=== PATIENT | male | born 2000 | race Caucasian/White ===

== ENCOUNTER 2022-04-23 09:57 | Emergency (ER) | payer OTHER, SELFPAY ==
--- NOTE | ~2022-04-23 | CT_ITS ---
EXAMINATION: CT BRAIN W/O DATE: 04/23/2022 11:00 INDICATION: Headache. TECHNIQUE: Computed tomography (CT) of the head was performed without intravenous contrast. The dose- length product was 605.33 mGy-cm. Automated exposure control and iterative reconstruction technique w ere employed. COMPARISON: No prior studies for comparison. FINDINGS: Normal brain parenchymal volume for age. Normal richardson-white differentiation. No acute intrac ranial hemorrhage, infarction, mass or mass effect. The intracranial vessels are hyperdense which can be seen with dehydration. No ventriculomegaly or midline shift. Midline sagittal images demonstrate a normal corpus callosum, c raniovertebral junction and sella turcica. Basilar cisterns are patent. Paranasal sinuses and mastoids are pneumatized. No depressed skull fractures. IMPRESSION: 1. No acute intracranial abnormality. Reviewed, dictated and finalized at location A.
[2022-04-23 10:20] VITALS: BP 162/82; PULSE 92; RESP 16; TEMP 36.2; O2SAT 100
[2022-04-23] MEDS: KETOROLAC 30 MG/ML VIAL (*BKC) IV PUSH (11:09)
[2022-04-23 12:20] VITALS: BP 127/71; PULSE 69; RESP 14; O2SAT 98
--- NOTE | 2022-04-23 13:14 | ED.HA ---
HPI - Headache General Chief Complaint: Headache Stated Complaint: headache Time Seen by Provider: 04/23/22 10:21 History of Present Illness HPI Narrative: Patient is a 21-year-old male who presents ER with headache for 3 weeks. Frontal. Nonradiating. Aching. Worsened when he is at work using a vibrating saw. No trauma. No change in vision or hearing. No ringing in the ears. No numbness or tingling to the arms or legs. Symptoms are worse in the morning. Improves when he takes Tylenol or ibuprofen. Related Data Home Medications Medication Instructions Recorded Confirmed No Home Medications 04/23/22 04/23/22 Allergies Allergy/AdvReac Type Severity Reaction Status Date / Time No Known Allergies Allergy Verified 04/23/22 10:25 Review of Systems Review of Systems: All systems reviewed & are unremarkable except as noted in HPI and below Constitutional: Constitutional: Denies chills, Denies fatigue and Denies fever(s) Eyes: Eyes: Denies change in vision and Denies photophobia ENT: Denies nasal congestion and Denies sore throat Cardiovascular: Cardiovascular: Denies chest pain, Denies rapid heart rate and Denies radiating jaw, neck or arm pain Respiratory: Respiratory: Denies cough, Denies dyspnea and Denies wheezing Gastrointestinal: Gastrointestinal: Denies abdominal pain and Denies nausea Neurologic: Denies dizziness, Denies syncope, Reports headache(s), Denies focal weakness and Denies numbness PMFSH Past Medical History Medical History (Updated 04/23/22 @ 13:20 by Francisco Lawrence MD) Healthy adult male Surgical History Surgical History (Updated 04/23/22 @ 13:20 by Francisco Lawrence MD) No history of previous surgery Social History Social History (Updated 04/23/22 @ 13:20 by Francisco Lawrence MD) Smoking status: Never smoker Exam Narrative: GENERAL: Well-appearing, well-nourished, and in no acute distress. HEAD: Normocephalic, atraumatic. EYES: PERRL and EOMI. ENT: Mucous membranes moist. No sinus tenderness. CHEST: Clear to auscultation. No respiratory distress. HEART: Regular rate and rhythm. Normal peripheral pulses. EXTREMITIES: Normal range of motion. No edema. SKIN: Warm, dry, no rash. NEURO: Alert and oriented x3. PSYCH: Normal mood and affect. Course Course Emergency Course: Headache improved with Toradol. Unremarkable CT. Recommend follow-up with neurology given concern for persistent headache. Vital Signs Vital signs: Vital Signs Temperature 97.2 F L 04/23/22 10:20 Pulse Rate 92 04/23/22 10:20 Respiratory Rate 16 04/23/22 10:20 Blood Pressure 162/82 H 04/23/22 10:20 Pulse Oximetry 100 04/23/22 10:20 Oxygen Delivery Room Air 04/23/22 10:20 Temperature 97.2 F L 04/23/22 10:20 Pulse Rate 69 04/23/22 12:20 Respiratory Rate 14 04/23/22 12:20 Blood Pressure 127/71 04/23/22 12:20 Pulse Oximetry 98 04/23/22 12:20 Oxygen Delivery Room Air 04/23/22 10:20 MDM - Headache Imaging Data Radiologist's impression: ITS Impressions Head CT 04/23/22 11:02 IMPRESSION: 1. No acute intracranial abnormality. Discharge Plan Discharge Clinical Impression: Headache Patient Disposition: Home, Self-Care Condition: Stable Additional Instructions: Return the ER if you lose consciousness, you have fever over 100.4 ?F, you cannot keep down food or water, you have additional concerns. Follow-up with neurology for further evaluation her headache which seems to be chronic at this point. Prescriptions: No Action No Home Medications Follow-up/Referrals: Hernan Bernardo MD [Physician] - 1 Week PHYSICIAN,EQUIPMENT SUPERINTENDENT [Primary Care Provider] - Stand Alone Forms: Work/School Release IP
[2022-04-23 13:22] VITALS: BP 134/73; PULSE 70; RESP 16; O2SAT 99
== END 2022-04-23 13:26 | disposition home or self-care (01) ==
PROVIDERS: Emergency Provider Emergency Medicine
DX: R51.9 Headache, unspecified (principal)
CPT/HCPCS: 70450; 96374; 99284; J1885

== ENCOUNTER 2022-07-03 09:48 | Emergency (ER) | payer OTHER, SELFPAY ==
--- NOTE | ~2022-07-03 | XR_ITS ---
Left Knee Technique: AP, lateral, and oblique views were obtained. Clinical History: Pain Findings: No fracture or dislocation is seen. Osseous alignment is anatomic. Joint spaces are preserv ed without degenerative or erosive change. Soft tissues are unremarkable. No joint effusion is seen. Impression: Unremarkable left knee radiographs. Reviewed, dictated and finalized at location [] ETIC LOCATER Impression: Unremarkable left knee radiographs.
--- NOTE | 2022-07-03 10:25 | ED.LOWEXIN ---
HPI - Extremity Injury (Lower) General Chief Complaint: Extremity Injury, Lower Stated Complaint: left knee injury Time Seen by Provider: 07/03/22 09:53 History of Present Illness HPI Narrative: 21-year-old male no medical problems presents to the emergency room for evaluation of left knee pain. Patient states 5 days ago he was playing basketball, when he landed on his left knee reportedly hearing a pop. States is experiencing pain with ambulation. Pain is located to the lateral and inferior side knee. Denies any joint laxity or buckling when he walks. States is taking ibuprofen and alleviates his discomfort for a brief period of time. Related Data Allergies Allergy/AdvReac Type Severity Reaction Status Date / Time No Known Allergies Allergy Verified 04/23/22 10:25 Review of Systems Review of Systems: CONSTITUTIONAL: Denies fever, chills, or sweats. EYES: Denies visual changes, redness, or discharge. ENT: Denies rhinorrhea, congestion, sore throat, or otalgia. CARDIOVASCULAR: Denies chest pain, palpitations, or edema. RESPIRATORY: Denies cough or dyspnea. GASTROINTESTINAL: Denies abdominal pain, nausea, vomiting, or diarrhea. GENITOURINARY: Denies dysuria or hematuria. SKIN: Denies rash or itching. MUSCULOSKELETAL: Reports left knee pain NEUROLOGIC: Denies headache, numbness, dizziness, or weakness. PSYCHIATRIC: Denies anxiety or depression. PMFSH Past Medical History Medical History Healthy adult male Surgical History Surgical History No history of previous surgery Social History Social History Smoking status: Never smoker Exam Narrative: GENERAL: Well-appearing, well-nourished, no physical limitations, and in no acute distress. HEAD: Normocephalic, atraumatic. EYES: Conjunctivae normal, PERRLA and EOMI. CHEST: Clear to auscultation. No respiratory distress. No wheezes rales or rhonchi. HEART: Regular rate and rhythm. No murmur heard. Normal peripheral pulses. EXTREMITIES: Left knee: +TTP with mild STS to posterior and lateral surfaces of the patella; no patellar tracking, no joint laxity. Negative anterior posterior drawer signs. Neurovascular is intact distally SKIN: Warm, dry, no rash. No noted wounds NEURO: No focal deficits. Alert and oriented x3. MAEW. CN's II-XI intact bilaterally, normal gait PSYCH: Cooperative. Normal mood and affect. MDM - Extremity Injury (Lower) Imaging Data Radiologist's impression: Impressions Knee X-Ray 07/03/22 10:03 Impression: Unremarkable left knee radiographs. Discharge Plan Discharge Clinical Impression: Left knee sprain, Acute internal derangement of knee Patient Disposition: Home, Self-Care Condition: Stable Instructions: Antibiotic Form Additional Instructions: Recommend obtaining a knee splint/sleeve from local pharmacy. Wear that for comfort. Take anti-inflammatories as needed for pain. Limit your physical activity. If you are not experiencing any relief of symptoms in the next 10 to 14 days, recommend following up with orthopedics or your primary care provider. Prescriptions: New meloxicam 15 mg tablet 15 mg PO DAILY Qty: 14 0RF Follow-up/Referrals: PHYSICIAN,CLIENT SUCCESS MANAGER [Non-Staff] - Olu Grier MD [Physician] - Stand Alone Forms: Work/School Release IP Time of Disposition: 10:34
[2022-07-03 10:35] VITALS: BP 126/70; PULSE 100; RESP 12; TEMP 37.1; O2SAT 98
== END 2022-07-03 10:51 | disposition home or self-care (01) ==
PROVIDERS: Emergency Provider Nurse Practitioner Family
DX: S83.92XA Sprain of unspecified site of left knee, initial encounter (principal); M23.92 Unspecified internal derangement of left knee; X50.0XXA Overexertion from strenuous movement or load, initial encounter
CPT/HCPCS: 73564; 99283

== ENCOUNTER 2023-05-17 19:16 | Observation (INO) | payer OTHER, SELFPAY ==
[2023-05-17] VITALS (9 sets, daily range): BP systolic 118–135; BP diastolic 65–79; PULSE 85–109; RESP 18–20; TEMP 37.6; O2SAT 97–100
--- NOTE | ~2023-05-17 | CT_ITS ---
EXAMINATION: CT abdomen pelvis w con DATE: 05/17/2023 21:59 INDICATION: RLQ tenderness TECHNIQUE: Computed tomography (CT) of the abdomen and pelvis was performed with 100 mL Omnipaque-350 intravenous contrast. Automated exposure control and iterative reconstruction technique were employe d. The dose-length product was 627.36 mGy-cm. COMPARISON: None. FINDINGS: Lower thorax: Unremarkable Liver: Normal. Biliary/Gallbladder: Gallbladder is normal. No bile duct dilation. Pancreas: No mass or duct dilation. Spleen: Normal. Adrenals:No mass. Kidneys: No suspicious mass, obstructing stone, or hydronephrosis. GI tract: No small or large bowel dilation. Dilated hyperemic appendix with surrounding inflammatory change, no abscess or wall breakdown Mesentery/Peritoneum: No ascites, mass, or free air. Retroperitoneum: No mass. Pelvis: Pelvic organs are within normal limits. Soft Tissues: Soft tissues and body wall unremarkable. Bones: No acute osseous finding. IMPRESSION: Acute uncomplicated appendicitis. Reviewed, dictated and finalized at location K.
[2023-05-17 19:44] LABS: Basophils Absolute Auto 0.1 K/mm3 (0.0-0.1); Basophils Percent Auto 0.3 % (0.2-1.2); Eosinophils Absolute Auto 0.1 K/mm3 (0-0.3); Eosinophils Percent Auto 0.3 % (0-4.4); Immature Granulocyte Absolute 0.05 K/mm3 (0.00-0.031); Immature Granulocyte Percent A 0.3 % (0-0.5); Mean Corpuscular Hemoglobin 29.1 pg (26-34); Mean Corpuscular Volume 85.6 fl (80-100); Mean Platelet Volume 10.4 fl (7.4-10.4); Monocytes Absolute Auto 1.3 K/mm3 (0.1-0.6); Monocytes Percent Auto 8.6 % (2.6-8.5); Neutrophils Absolute Auto 12.4 K/mm3 (1.3-6.7); Neutrophils Percent Auto 82.5 % (45.5-73.1); Platelet Count Result 199 k/mm3 (150-375); Red Blood Count 5.49 M/mm3 (4.6-6.20); White Blood Count 15.1 K/mm3 (4.5-10.0)
[2023-05-17 19:55] LABS: Appearance Urine Clear (Clear); Bilirubin Urine Negative (Negative); Blood Urine Negative (Negative); Color Urine Yellow (Yellow); Glucose Urine UA Negative (Negative); Ketones Urine Negative (Negative); Leukocyte Esterase Ur Negative LEU/UL (Negative); Nitrate Urine Negative (Negative); Protein Urine Negative (Negative); Specific Grav Ur 1.007 (1.001-1.035); Urobilinogen Urine 0.2 mg/dL (<2.0); pH Urine 7.5 (5.0-9.0)
[2023-05-17 19:56] LABS: Alanine Aminotransferase 64 U/L (6-50); Albumin Level 4.9 g/dL (3.5-5.1); Alkaline Phosphatase 72 U/L (38-126); Anion Gap 8 mmol/L (8-16); Aspartate Amino Transferase 35 U/L (17-59); Bilirubin,Total 0.9 mg/dL (0.2-1.3); Blood Urea Nitrogen 15 mg/dL (9-20); Calcium 10.2 mg/dL (8.4-10.2); Carbon Dioxide 28 mmol/L (22-30); Chloride 101 mmol/L (98-107); Estimated CRCL calculation 104 ml/min; Estimated Glomerular Filt Rate > 60; Glucose 100 mg/dL (65-110); Lipase 56 U/L (23-300); Potassium 3.7 mmol/L (3.4-5.0); Sodium 137 mmol/L (137-145)
[2023-05-17 20:32] LABS: Add Urine Microscopic? NO
--- NOTE | 2023-05-17 21:07 | ED.GENADULT ---
[facility] General Adult General Chief complaint: Abdominal Pain Stated complaint: LRQ abd pain Time Seen by Provider: 05/17/23 20:53 Source: patient Mode of arrival: ambulatory Limitations: no limitations History of Present Illness HPI narrative: This is a 22-year-old male who presents to the ED with chief complaint of acute onset of right lower quadrant abdominal pain beginning around 1300 today. Patient was at work when this started. Reports that he has had developing nausea but no vomiting. Reports the pain is an 8 out of 10 here. Reports it is strictly in the right lower quadrant and does not radiate. Denies any relieving or exacerbating factors. Denies fevers, chills, recent illness, chest pain, shortness of breath, cough, problems with bowel movements or urination. Related Data Home Medications Medication Instructions Recorded Confirmed No Home Medications 05/18/23 05/18/23 Allergies Allergy/AdvReac Type Severity Reaction Status Date / Time No Known Allergies Allergy Verified 05/17/23 19:39 Review of Systems Review of Systems: All systems as dictated in [facility] Past Medical History Medical History Healthy adult male Surgical History Surgical History No history of previous surgery Social History Social History Smoking status: Never smoker Alcohol intake: former Substance use: never Lack of Transportation: No Lack of Food: Never True Current Housing: I Have Housing Concerned About Future Housing: No Difficulty Paying Gas/Electric Bills: No Difficulty Paying for Meds: No Currently Unemployed: No Education: High School Diploma/GED Difficulty w/ Childcare or Family Care: No Spiritual care concerns: No Exam Narrative: GENERAL: Well-appearing, well-nourished, and in no acute distress. HEAD: Normocephalic, atraumatic. EYES: PERRLA and EOMI. ENT: Nares clear, no rhinorrhea or epistaxis. Mucous membranes moist. Oropharynx without tonsillar hypertrophy exudate or other lesions. NECK: Supple. No adenopathy or masses. CHEST: No respiratory distress. Clear to auscultation. No wheezes rales or rhonchi HEART: Regular rate and rhythm. No murmur heard. Normal peripheral pulses. ABDOMEN: McBurney's point positive with focal right lower quadrant tenderness. Negative flank tenderness bilaterally. Soft, otherwise nontender, nondistended, normal active bowel sounds. MSK: Normal range of motion. No edema. SKIN: Warm, dry, no rash. NEURO: Alert and oriented x3. No focal deficits. PSYCH: Normal mood and affect. Course Course Emergency Course: Consult 2224: Spoke with Dr. Hubbard (general surgery). Recommends continuing pain medication, antibiotics and he will see the patient first thing in the morning. Keep patient n.p.o. Vital Signs Vital signs: Vital Signs Temperature 99.6 F 05/17/23 19:29 Pulse Rate 109 H 05/17/23 19:29 Respiratory Rate 20 05/17/23 19:29 Blood Pressure 129/67 05/17/23 19:29 Pulse Oximetry 100 05/17/23 19:29 Oxygen Delivery Room Air 05/17/23 19:29 Temperature 97.6 F 05/18/23 00:10 Pulse Rate 87 05/18/23 00:10 Respiratory Rate 20 05/18/23 00:10 Blood Pressure 133/77 05/18/23 00:10 Pulse Oximetry 100 05/18/23 00:10 Oxygen Delivery Room Air 05/17/23 19:29 Medical Decision Making MDM Narrative Medical decision making narrative: This is a 22-year-old male who presents to the ED with chief complaint of right lower quadrant abdominal pain beginning around 1300 today. No additional complaint of nausea. Vitals show initial tachycardia at 109. Hemodynamically stable. Temperature slightly elevated at 99.6 ?F. Exam shows focal right lower quadrant tenderness with positive McBurney point. Lab work initially shows a white count of 15.1. UA an
[2023-05-17] MEDS: MORPHINE SULFATE (*CRX) 4 MG/ML INJ IV PUSH (21:41)
[2023-05-17] MEDS: SODIUM CHLORIDE 0.9% IV 1,000 ML 999 ML IV CONT (21:42)
[2023-05-17] MEDS: ONDANSETRON INJ 4 MG/2 ML VIAL IV PUSH (21:42)
--- NOTE | 2023-05-17 22:23 | ECG_ITS ---
Measurements Intervals [place] Rate: 96 P: 61 ND: 176 QRS: 27 QRSD: 90 T: 11 QT: 315 QTc: 398 Interpretive Statements SINUS RHYTHM BASELINE ARTIFACT NONSPECIFIC T-WAVE ABNORMALITY BORDERLINE ECG NO PREVIOUS ECG AVAILABLE FOR COMPARISON Electronically Signed On 05-18-2023 13:40:46 CDT by Matthew Dietz M.D.
[2023-05-17] MEDS: metroNIDAZOLE 500 MG/ISO 100ML 500 MG/100 ML BAG 100 MG IVPB (22:57)
[2023-05-17 23:28] LABS: Prothrombin Time 13.9 Seconds (11.1-14.7)
[2023-05-17 23:29] LABS: Partial Thromboplastin Time 29.2 SECONDS (22.3-36.8)
[2023-05-18] VITALS (13 sets, daily range): BP systolic 112–134; BP diastolic 51–84; PULSE 71–87; RESP 12–20; TEMP 36.3–36.9; O2SAT 98–100; BMI 31.8
[2023-05-18] MEDS: SODIUM CHLORIDE 0.9% IV 1,000 ML 125 ML IV CONT ×2 (00:05→09:02)
--- NOTE | 2023-05-18 00:22 | ADMGEN ---
This patient, Elsa Stafford, was admitted to [address] [place] [address] Room 315-02 at 2350. Patient/family oriented to hospital policies and general routines including ID bracelet, bed and alarms, visiting hours, pain management, procedures, bathroom and other care routines, personal items, smoking policy, room service/diet, and visiting hours. Information on how to activate the Rapid Response Team has been discussed. Patient/Family are encouraged to report perceived risks to care and to ask questions if they do not understand what they are told or what they should do.
[2023-05-18] MEDS: metroNIDAZOLE 500 MG/ISO 100ML 500 MG/100 ML BAG 100 MG IVPB (04:52)
[2023-05-18] MEDS: MORPHINE SULFATE (*CRX) 4 MG/ML INJ IV PUSH (09:03)
--- NOTE | 2023-05-18 09:04 | PM.IMHP ---
H&P: HPI History of Present Illness Date/Time: 05/18/23 09:04 Chief Complaint: Right lower quadrant abdominal pain Narrative: Patient is a 22-year-old man who about 1:00 p.m. yesterday was at work and started noticing some periumbilical abdominal pain. This pain worsened and later in the day yesterday he went to the emergency room. The pain had moved from the umbilical area to the right lower quadrant. He experience nausea but no vomiting. His pain was quite severe when he went to the emergency room. In the emergency room, [place] [id number] and a low-grade fever. He was noted to have right lower quadrant tenderness with peritoneal signs. He had a CT scan of the abdomen and pelvis which showed early acute appendicitis. Patient has been started on antibiotics and admitted last night. He is otherwise healthy. He continues to have pain and receives morphine p.r.n.. He just had a dose of morphine this morning. Review of Systems Review of Systems: All systems reviewed & are unremarkable except as noted in HPI and below (HPI and those items noted below) Constitutional: Constitutional: Denies chills and Denies fever(s) Cardiovascular: Cardiovascular: Denies chest pain, Denies diaphoresis, Denies dyspnea and Denies paroxysmal nocturnal dyspnea Respiratory: Respiratory: Denies chest congestion, Denies cough and Denies dyspnea Integumentary/Breasts: Skin/Breast: Denies lesions and Denies rash PMFSH Past Medical History Medical History Healthy adult male Surgical History Surgical History No history of previous surgery Social History Social History Smoking status: Never smoker Alcohol intake: former Substance use: never Lack of Transportation: No Lack of Food: Never True Current Housing: I Have Housing Concerned About Future Housing: No Difficulty Paying Gas/Electric Bills: No Difficulty Paying for Meds: No Currently Unemployed: No Education: High School Diploma/GED Difficulty w/ Childcare or Family Care: No Spiritual care concerns: No Meds Home Medications and Allergies Home Medications Medication Instructions Recorded Confirmed Type No Home Medications 05/18/23 05/18/23 History Allergies Allergy/AdvReac Type Severity Reaction Status Date / Time No Known Allergies Allergy Verified 05/17/23 19:39 Vital Signs Vital Signs - 24 hr 05/17/23 19:29 05/17/23 23:05 05/17/23 23:06 Temperature 37.6 C Pulse Rate 109 H 85 Respiratory Rate 20 Blood Pressure 129/67 135/75 Pulse Oximetry 100 100 99 Oxygen Delivery Room Air 05/17/23 23:15 05/17/23 23:16 05/17/23 23:30 Temperature Pulse Rate 85 Respiratory Rate 18 Blood Pressure 122/79 Pulse Oximetry 98 99 98 Oxygen Delivery 05/17/23 23:31 05/17/23 23:45 05/17/23 23:46 Temperature Pulse Rate Respiratory Rate Blood Pressure 118/68 124/65 Pulse Oximetry 98 97 97 Oxygen Delivery 05/18/23 00:10 05/18/23 01:57 05/18/23 06:00 Temperature 36.4 C 36.8 C Pulse Rate 87 71 Respiratory Rate 20 18 Blood Pressure 133/77 129/74 Pulse Oximetry 100 100 Oxygen Delivery Room Air Exam Const: General: comfortable, no acute distress, alert and awake HENMT: Head: normocephalic and atraumatic Mouth: Yes Normal oral and palatal mucosa present Eyes: Conjunctivae: conjunctivae normal Pupils: Equal, round and reactive pupils present EOM: EOMs intact bilaterally Neck: Neck: normal visual inspection, no lymphadenopathy and nontender Resp: Effort & Inspection: normal respiratory effort Auscultation: clear to auscultation bilaterally Cardio: Rate: regular rate Rhythm: regular rhythm Heart sounds: no gallops, no murmurs and no rubs GI: Inspection: normal to inspection and non-distended GI Palp: Ye
--- NOTE | 2023-05-18 09:55 | WPDHPUPDATE1 ---
History and Physical Update Update Date/Time: 05/18/23 09:55 History and Physical has been reviewed, including an updated exam of the patient. There are NO changes in the patient's condition. Risks, benefits, and alternatives have been discussed and questions answered. Patient agrees to proceed with procedure.
[2023-05-18] MEDS: LACTATED RINGERS 1,000 ML 30 ML IV CONT (10:45)
--- NOTE | 2023-05-18 10:45 | WPDANESEPPF ---
Anes - Initial Pre Proc Eval Procedure: Operation Date: 05/18/23 11:00 Proposed Procedures p Laparoscopic Appendectomy - Kameron Hubbard MD Date/Time: 05/18/23 10:45 Surgeon: Kameron Hubbard MD Pre Op Diagnosis: Acute Appendicitis Patient Data Age: 22 Gender: M Height: 1.75 m Weight: 97.8 kg Last Vital Signs Temp 36.8 C 05/18/23 06:00 Pulse 71 05/18/23 06:00 Resp 18 05/18/23 06:00 BP 129/74 05/18/23 06:00 Pulse Ox 100 05/18/23 06:00 O2 Del Method Room Air 05/18/23 09:00 Allergies Allergy/AdvReac Type Severity Reaction Status Date / Time No Known Allergies Allergy Verified 05/17/23 19:39 Home Medications Medication Instructions Recorded Confirmed Type No Home Medications 05/18/23 05/18/23 History Laboratory Tests 05/17/23 05/17/23 19:34 23:12 WBC 15.1 H K/mm3 (4.5-10.0) RBC 5.49 M/mm3 (4.6-6.20) Hgb 16.0 g/dL (14.0-18.0) Hct 47.0 % (42.0-52.0) MCV 85.6 fl (80-100) MCH 29.1 pg (26-34) MCHC 34.0 g/dl (32-36) RDW 12.0 % (11.5-14.5) Plt Count 199 k/mm3 (150-375) MPV 10.4 fl (7.4-10.4) Immature Gran % (Auto) 0.3 % (0-0.5) Neut % (Auto) 82.5 H % (45.5-73.1) Lymph % (Auto) 8.0 L % (18.3-44.2) [place] % (Auto) 8.6 H % (2.6-8.5) Eos % (Auto) 0.3 % (0-4.4) Baso % (Auto) 0.3 % (0.2-1.2) Lymph # (Auto) 1.20 K/mm3 (0.9-3.2) [place] # (Auto) 1.3 H K/mm3 (0.1-0.6) Eos # (Auto) 0.1 K/mm3 (0-0.3) Baso # (Auto) 0.1 K/mm3 (0.0-0.1) Abs Immat Gran (auto) 0.05 H K/mm3 (0.00-0.031) Absolute Neuts (auto) 12.4 H K/mm3 (1.3-6.7) Absolute Nucleated RBC 0.0 K/mm3 (0.0-0.012) Nucleated RBC % 0.0 % (0.0-0.2) PT 13.9 Seconds (11.1-14.7) INR 1.0 APTT 29.2 SECONDS (22.3-36.8) Sodium 137 mmol/L (137-145) Potassium 3.7 mmol/L (3.4-5.0) Chloride 101 mmol/L (98-107) Carbon Dioxide 28 mmol/L (22-30) Anion Gap 8 mmol/L (8-16) BUN 15 mg/dL (9-20) Creatinine 1.00 mg/dL (0.7-1.3) Estim Creat Clear Calc 104 ml/min Estimated GFR > 60 (59 - ) Glucose 100 mg/dL (65-110) Calcium 10.2 mg/dL (8.4-10.2) Total Bilirubin 0.9 mg/dL (0.2-1.3) AST 35 U/L (17-59) ALT 64 H U/L (6-50) Alkaline Phosphatase 72 U/L (38-126) Total Protein 8.0 g/dL (6.3-8.2) Albumin 4.9 g/dL (3.5-5.1) Lipase 56 U/L (23-300) Urine Color Yellow (Yellow) Urine Appearance Clear (Clear) Urine pH 7.5 (5.0-9.0) Ur Specific [place] 1.007 (1.001-1.035) Urine Protein Negative mg/dL (Negative) Urine Glucose (UA) Negative mg/dL (Negative) Urine Ketones Negative mg/dL (Negative) Ur Blood (Man) Negative (Negative) Urine Nitrate Negative (Negative) Urine Bilirubin Negative (Negative) Urine Urobilinogen 0.2 mg/dL (<2.0) Leukocyte Esterase Rfl Negative HI/UL (Negative) Blood Type A Positive Antibody Screen Negative Patient hx anesthesia problems: none Family hx anesthesia problems: none Results Review: All pre-operative results and documents have been reviewed as part of the pre-operative evaluation. [facility] Past Medical History Medical History (Updated 05/18/23 @ 10:45 by Ranjeet Duran MD) Acute appendicitis Surgical History Surgical History (Updated 05/18/23 @ 10:45 by Ranjeet Duran MD) Hx of tonsillectomy Social History Social History Smoking status: Never smoker Alcohol intake: former Substance use: never Lack of Transportation: No Lack of Food: Never True Current Housing: I Have Housing Concerned About Future Housing: No Difficult
[2023-05-18] MEDS: BUPIVACAINE/EPINEPHRINE 0.5% 50 ML VIAL INFILTRATE (11:08)
--- NOTE | 2023-05-18 11:28 | W.PM.PROC2 ---
Procedure Note - Detailed Date of Procedure 05/18/23 Pre-op Diagnosis Acute Appendicitis Post-op Diagnosis Same Procedure Performed Laparoscopic appendectomy Surgeon Kameron Hubbard MD Physical Aerodynamicist Brendon ADLER Anesthesia General and Local (0.5% Marcaine with epinephrine) Indications Patient is a 22-year-old healthy man who yesterday started noticing periumbilical pain that later moved to the right lower quadrant. Became much more severe and the patient came to the emergency room. He was noted to have leukocytosis and a low-grade fever as well as exquisite tenderness in the right lower quadrant with guarding. CT scan showed acute appendicitis. He is taken to surgery now for laparoscopic appendectomy Findings Non perforated acute appendicitis Description of Procedure Patient was taken to the operating room and induced into general anesthesia. The abdomen is prepped and draped. Trocars were placed in the usual fashion using an Erydel optical 5 mm trocar placed in the left subcostal position 1st. Patient was placed in Trendelenburg with the right-side elevated. The appendix was found easily. It was very dilated and edematous. It also had hyperemia. The appendix was elevated and the mesoappendix was exposed. There was a large lymph node near the base of the appendix in the mesoappendix. Dissection was carried out such that this lymph node was included in the appendiceal mesentery. Cautery and blunt dissection was used primarily. Adhesions to the appendix were taken down. Eventually the mesentery to the appendix was dissected. The appendiceal artery was thoroughly cauterized and divided. Eventually the base of the appendix was skeletonized. A Vicryl endoloop was then introduced and the appendix was ligated at its base. The appendix was then amputated just above the ligature. The mucosa of the appendiceal stump was cauterized. The appendix was placed immediately in an Endo-Catch bag. It was retrieved easily through the left lower quadrant 10 11 trocar site. We then replaced the 10 11 trocar and reviewed the areas of dissection including the appendiceal stump. All looked good with no evidence of bleeding or other problems. We then evacuated CO2 and removed the trocar sleeves. Skin wounds were closed with subcuticular 4-0 Monocryl skin suture. The wounds were dressed with Exofin surgical adhesive. The patient was awakened and taken to recovery in good condition. Sponge and needle counts were correct x2. Estimated Blood Loss -5 Drains No Packing No Pathology Yes (Appendix) Complications No immediate complications Condition Stable Disposition PACU [facility] Billing Surgery - Charge Forward: Surgery Billing (Laparoscopic appendectomy)
--- NOTE | 2023-05-18 11:38 | PM.DS ---
DS: Admitting Diagnosis Discharge Date 05/18/2023 Admitting Diagnosis Acute appendicitis DS: Discharge Diagnosis Discharge Diagnosis (1) Acute appendicitis: Qualifiers: Acute appendicitis type: with localized peritonitis Appendicitis abscess presence: without abscess Appendicitis gangrene presence: unspecified whether gangrene present Appendicitis perforation presence: without perforation Qualified Code(s): K35.30 - Acute appendicitis with localized peritonitis, without perforation or gangrene Code(s): K35.80 - Unspecified acute appendicitis Status: Acute DS: Summary Hospital Course Hospital Course: Patient came into the emergency room in the evening of 05/17/2023. Evaluation there including CT scan and labs showed acute appendicitis. He was started on broad-spectrum antibiotics and analgesics p.r.n.. The following morning, he was still taking narcotic analgesics and having pain whenever removed. He was taken to the operating room by Dr. Hubbard on 05/18/2023. Laparoscopic appendectomy was performed. Intraoperative finding showed uncomplicated acute appendicitis. Patient was observed for few hours following surgery and was able to be discharged later in the day on 05/18/2023. Status at Discharge Functional status at discharge: independent ambulation Overall status at discharge: patient is progressing back to baseline Time Spent with Patient Time attestation: Total time spent providing and/or coordinating discharge services: Time spent: Less than 30 minutes DS: Data Data Completed and Pending Pending studies at discharge: Pending at discharge 05/18/23 11:09 Surgical [PTH] Routine Labs on day of discharge: Labs from last 24 hours 05/17/23 05/17/23 23:12 19:34 WBC 15.1 H RBC 5.49 Hgb 16.0 Hct 47.0 MCV 85.6 MCH 29.1 MCHC 34.0 RDW 12.0 Plt Count 199 MPV 10.4 Immature Gran % (Auto) 0.3 Neut % (Auto) 82.5 H Lymph % (Auto) 8.0 L Forrest % (Auto) 8.6 H Eos % (Auto) 0.3 Baso % (Auto) 0.3 Lymph # (Auto) 1.20 Forrest # (Auto) 1.3 H Eos # (Auto) 0.1 Baso # (Auto) 0.1 Abs Immat Gran (auto) 0.05 H Absolute Neuts (auto) 12.4 H Absolute Nucleated RBC 0.0 Nucleated RBC % 0.0 PT 13.9 INR 1.0 APTT 29.2 Sodium 137 Potassium 3.7 Chloride 101 Carbon Dioxide 28 Anion Gap 8 BUN 15 Creatinine 1.00 Estim Creat Clear Calc 104 Estimated GFR > 60 Glucose 100 Calcium 10.2 Total Bilirubin 0.9 AST 35 ALT 64 H Alkaline Phosphatase 72 Total Protein 8.0 Albumin 4.9 Lipase 56 Urine Color Yellow Urine Appearance Clear Urine pH 7.5 Ur Specific [place] 1.007 Urine Protein Negative Urine Glucose (UA) Negative Urine Ketones Negative Ur Blood (Man) Negative Urine Nitrate Negative Urine Bilirubin Negative Urine Urobilinogen 0.2 Leukocyte Esterase Rfl Negative Blood Type A Positive Antibody Screen Negative Discharge Plan Discharge Attending physician on discharge: Kameron Hubbard Discharging Clinician: Kameron Hubbard Anticipated Discharge Date/Time: 05/18/23 16:00 Patient Disposition: Home, Self-Care Activity: may shower, no straining and as tolerated Diet: regular and bland Wound Care Instructions: incision open to air Discharge Instructions: 1. May shower the day after surgery over incisions. 2. Call office for: -Wound increasingly painful or bleeding -Vomiting -Fever of greater than 101 degrees 3. Expect some blood on dressing and old blood on skin. 4. If no bowel movement for three days, take 1 oz. (30 ml) Milk of Magnesia, if no results, take Fleets enema. 5. No heavy lifting > 15-20 pounds for 2 weeks. 6. No driving for 3 days or while taking narcotic pain medications. 7. Up walking 10-30 minutes three times per day. 8. Resume previous home medications.
[2023-05-18] MEDS: fentaNYL CITRATE INJ (*CRX) 100 MCG/2 ML VIAL 25 MCG IV PUSH ×4 (12:07→12:16)
== END 2023-05-18 16:00 | disposition home or self-care (01) ==
LOC: ANHED 22:24 → ANH3MEDSUR 23:28
PROVIDERS: Emergency Medicine; Admitting Provider Surgery; Emergency Provider Physician Assistant; Visit Provider Surgery
PROC: 0DTJ4ZZ Resection of Appendix, Percutaneous Endoscopic Approach (ICD-10-PCS; CPT 44970; principal; 2023-05-18 11:00)
DX: K36 Other appendicitis (principal); D72.829 Elevated white blood cell count, unspecified; R94.31 Abnormal electrocardiogram [ECG] [EKG]; E66.3 Overweight; Z68.31 Body mass index [BMI] 31.0-31.9, adult
CPT/HCPCS: 44970; 36415; 74177; 80053; 81003; 83690; 85025; 85610; 85730; 86850; 86900; 86901; 88304; 93005; 96361; 96365; 96367; 96375; 99285; G0378; G0379; J0330; J0696; J1100; J1836; J2250; J2270; J2405; J2704; J3010; J7030; J7120; Q9967

== ENCOUNTER 2024-08-10 07:55 | Emergency (ER) | payer OTHER, SELFPAY ==
[2024-08-10 08:00] VITALS: BP 150/81; PULSE 101; RESP 18; TEMP 36.7; O2SAT 100
--- NOTE | 2024-08-10 08:01 | ED_ITS ---
HPI - URI/Sore Throat General Chief Complaint: Upper Respiratory Infection Stated Complaint: sore throat Time Seen by Provider: 08/10/24 07:57 Source: patient Mode of arrival: ambulatory Limitations: no limitations History of Present Illness HPI Narrative: 23 year old male presents to the Emergency Department complaining of illness beginning 2 days ago. Began with headache and body aches. Now has sore throat. Unknown fever. No known exposure. No vomiting or diarrhea. MD elicited complaint: sore throat and nasal congestion Onset (ago): day(s) (2) Able to tolerate fluids by mouth: Yes Exacerbating factors: nothing Relieving factors: nothing Related Data Home Medications ?Medication ?Instructions ?Recorded ?Confirmed ?Last Taken ?Type No Home Medications 05/26/23 08/10/24 Unknown History Allergies Allergy/AdvReac Type Severity Reaction Status Date / Time No Known Allergies Allergy Verified 08/10/24 08:02 Review of Systems Review of Systems: All systems reviewed & are unremarkable except as noted in HPI and below Constitutional: Constitutional: Reports as per HPI Comments: unknown fever Eyes: Eyes: Reports as per HPI ENT: Reports nasal congestion and Reports sore throat Cardiovascular: Cardiovascular: Reports as per HPI and Denies chest pain Respiratory: Respiratory: Reports as per HPI, Denies chest congestion, Reports cough and Denies dyspnea Gastrointestinal: Gastrointestinal: Reports as per HPI, Denies abdominal pain, Denies diarrhea, Denies nausea and Denies vomiting Genitourinary: Genitourinary: Reports no additional male genitourinary complaints Musculoskeletal: Musculoskeletal: Reports no additional musculoskeletal compla ints and Reports myalgias Integumentary/Breasts: Skin/Breast: Reports system reviewed and no additional complaints, except as docu Neurologic: Reports system reviewed and no additional complaints, except as documented and Reports headache(s) Endocrine: Endocrine: Reports no additional endocrine complaints Hematologic/Lymphatic: Hematologic/Lymphatic: Reports no additional hematologic/lymphatic complaints Allergic/Immunologic: Allergic/Immunologic: Reports no additional allergic/immunologic complaints PMFSH Past Medical History Medical History Acute appendicitis Surgical History Surgical History Hx of tonsillectomy Social History Social History Smoking status: Never smoker Alcohol intake: former Substance use: never Lack of Transportation: No Lack of Food: Never True Current Housing: I Have Housing Concerned About Future Housing: No Difficulty Paying Gas/Electric Bills: No Difficulty Paying for Meds: No Currently Unemployed: No Education: High School Diploma/GED Difficulty w/ Childcare or Family Care: No Spiritual care concerns: No Exam Const: General: healthy appearing and no acute distress Nutritional Appearance: well nourished Orientation/consciousness: patient oriented x3 Limitations: no limitations HENMT: Head: normal to inspection Ears: external ears normal Face/Nose/Sinus: Normal external nose present Face and sinus: normal facial exam Mouth: Yes Normal oral and palatal mucosa present Teeth and gingiva: dentition normal Other: mild pharyngeal erythema Eyes: Conjunctivae: conjunctivae normal Pupils: Equal, round and reactive pupils present EOM: EOMs intact bilaterally Direct Ophthalmoscopy: no photophobia Neck: Neck: normal visual inspection and no meningeal signs Chest: Chest palpation & inspection: normal inspection of the chest Resp: Effort & Inspection: normal respiratory effort Auscultation: clear to auscultation bilaterally Cardio: Rate: regular rate Rhythm: regular rhythm GI: Inspection: non-distended GI Palp: Yes Soft to palpation and No Tenderness to palpation present (GI) Back/Spine/Pelvis: Back: no CVA tenderness Skin: General skin exam: normal color Rashes: no rashes Neuro: General: patient oriented x3 and no meningeal signs Cranial nerves: Yes Nystagmus not present Speech: normal speech Gait exam (Neuro): Normal gait present Other: grossly normal Extrem: General: normal to inspection and no clubbing, cyanosis or edema Psych: Mental Status: mental status grossly normal Course Course Emergency Course: 23 y/o male presents to the ED c/o URI symptoms for past 2 days. PE: mild erythema pharynx Strep: negative Covid: negative Influenza: negative RSV: negative *reviewed and discussed results with patient. Discussed further management. Patient voices understanding and agreement. Instructions Vital Signs Vital signs: Vital Signs Oxygen Delivery Room Air 08/10/24 07:55 Temperature 36.7 C 08/10/24 08:00 Pulse Rate 101 H 08/10/24 08:00 Respiratory Rate 18 08/10/24 08:00 Blood Pressure 150/81 H 08/10/24 08:00 Pulse Oximetry 100 08/10/24 08:00 Oxygen Delivery Room Air 08/10/24 08:00 MDM - URI/Sore Throat Lab Data Labs: Lab Results 08/10/24 Range/Units 08:22 Influenza A (RT-PCR) Negative (Negative) Influenza B (RT-PCR) Negative (Negative) RSV (RT-PCR) Negative (Negative) SARS-CoV-2 RNA (RT-PCR) Negative (Negative) Group A Strep (PCR) Not detected (Negative) Discharge Plan Discharge Clinical Impression: Upper respiratory infection, viral Patient Disposition: Home, Self-Care Condition: Stable Instructions: Viral Syndrome (ED), Cold Symptoms (ED) Additional Instructions: Rest Push fluids Tylenol 650 mg every 4 hours and Ibuprofen 600 mg every 6 hours for fever and body aches Throat lozenges /sprays (benzocaine) as needed Antihistamine as needed for runny nose Decongestant as needed for congestion Follow up Primary Care Physician Return as needed Patient Language: Ecuadorean Prescriptions: No Action No Home Medications Follow-up/Referrals: UNKNOWN,DOCTOR [Primary Care Provider] - Primary Care Physician [Other] Stand Alone Forms: Work/School Release IP Time of Disposition: 09:05
[2024-08-10 08:42] LABS: SARS-CoV-2 RNA PCR Negative (Negative)
[2024-08-10 08:43] LABS: Influenza A QL RT-PCR Negative (Negative); Influenza B QL RT-PCR Negative (Negative); RSV RNA, RT-PCR Negative (Negative); Strep Group A RT-PCR NOT DETECTED (Negative)
[2024-08-10 09:10] VITALS: BP 135/87; PULSE 83; RESP 18; TEMP 36.8; O2SAT 99
== END 2024-08-10 09:10 | disposition home or self-care (01) ==
PROVIDERS: Emergency Provider Emergency Medicine
DX: J06.9 Acute upper respiratory infection, unspecified (principal); B97.89 Other viral agents as the cause of diseases classified elsewhere; Z20.822 Contact with and (suspected) exposure to COVID-19
CPT/HCPCS: 87637; 87651; 99283